=== PATIENT | male | born 1960 | race Two or more races ===

== ENCOUNTER 2019-08-25 21:27 | Emergency (ER) | payer SELFPAY ==
[2019-08-25 21:32] VITALS: BP 139/87
[2019-08-25] MEDS ORDERED: METF500T27 PO (21:41)
[2019-08-25] MEDS ORDERED: metFORMIN 500 MG TABLET ONE (21:43)
[2019-08-25] MEDS ORDERED: metFORMIN 500 MG TABLET PO ONE (22:00)
== END 2019-08-25 22:05 | disposition home or self-care (01) ==
LOC: ED 21:30
DX: E11.65 Type 2 diabetes mellitus with hyperglycemia (principal); Z76.0 Encounter for issue of repeat prescription
CPT/HCPCS: 99283